=== PATIENT | female | born 1965 | race Caucasian/White ===

== ENCOUNTER 2017-07-29 03:49 | Inpatient (IN) | payer OTHER ==
[2017-07-29] MEDS: morphine 4 MG/ML VIAL IV (04:29)
[2017-07-29] MEDS: ONDANSETRON 4 MG INJ IV ×5 (04:29→21:19)
[2017-07-29 04:30] LABS: URINE BLOOD (Dip) POC 1+ (NEGATIVE); URINE GLUCOSE (Dip) POC Negative (NEGATIVE); URINE KETONES (Dip) POC Negative (NEGATIVE); URINE LEUKOCYTE EST (Dip) POC Negative (NEGATIVE); URINE NITRITE (Dip) POC Negative (NEGATIVE); URINE TOTAL PROTEIN POC Negative (NEGATIVE)
[2017-07-29 04:30] LABS: URINE PH (Dip) POC 5.5 (5.0-8.5)
[2017-07-29] MEDS: SOD CHLORIDE 0.9% 1,000 ML IV (04:31)
[2017-07-29 04:45] LABS: ADD MAN DIFF? NO
[2017-07-29 04:49] LABS: WHITE BLOOD COUNT 7.9 10^3/ul (4.8-10.8)
[2017-07-29 04:49] LABS: BASOPHILS % 0.1 % (0.0-2.0); EOSINOPHILS # 0.4 10^3/ul (0.0-0.5); EOSINOPHILS % 5.5 % (0.0-7.0); HEMATOCRIT 37.4 % (37.0-47.0); HEMOGLOBIN 12.3 g/dl (12.0-16.0); LYMPHOCYTES # 0.9 10^3/ul (0.8-2.9); LYMPHOCYTES % 11.9 % (15.0-51.0); MEAN CORPUSCULAR HEMOGLOBIN 29.2 pg (29.0-33.0); MEAN CORPUSCULAR HGB CONC 32.9 g/dl (32.0-37.0); MEAN CORPUSCULAR VOLUME 88.8 fl (82.0-101.0); MEAN PLATELET VOLUME 10.1 fl (7.4-10.4); MONOCYTE # 0.3 10^3/ul (0.3-0.9); MONOCYTES % 4.2 % (0.0-11.0); NEUTROPHIL # 6.2 10^3/ul (1.6-7.5); PLATELET COUNT 243 10^3/UL (140-415); RED BLOOD COUNT 4.21 10^6/ul (4.20-5.40); RED CELL DISTRIBUTION WIDTH 14.4 % (11.5-14.5)
[2017-07-29] MEDS: SODIUM CHLORIDE 0.9% 1L BAG IV* (05:03)
[2017-07-29] MEDS: ACETAMINOPHEN 325 MG TAB PO ×2 (05:03→11:47)
[2017-07-29 05:09] LABS: ADD UMIC YES; UR ASCORBIC ACID NEGATIVE (NEGATIVE); UR BACTERIA FEW /HPF (NONE SEEN); UR BILIRUBIN (Dip) NEGATIVE (NEGATIVE); UR BLOOD (Dip) 1+ mg/dL (NEGATIVE); UR CLARITY SLIGHTLY CLOUDY (CLEAR); UR COLOR YELLOW (YELLOW); UR GLUCOSE (Dip) NEGATIVE (NEGATIVE); UR KETONES (Dip) NEGATIVE (NEGATIVE); UR LEUKOCYTE ESTERASE (Dip) NEGATIVE Leu/ul (NEGATIVE); UR MUCUS FEW /HPF (NONE SEEN); UR NITRITE (Dip) NEGATIVE (NEGATIVE); UR RBC 0 /HPF (0-5); UR SPECIFIC GRAVITY (Dip) 1.019 (1.003-1.030); UR SQUAMOUS EPITHELIAL CELL FEW /HPF (FEW); UR TOTAL PROTEIN (Dip) NEGATIVE (NEGATIVE); UR UROBILINOGEN (Dip) NEGATIVE (NEGATIVE); UR WBC 3 /HPF (0-5)
[2017-07-29 05:15] LABS: ALANINE AMINOTRANSFERASE 213 IU/L (13-69); ALBUMIN 3.7 g/dl (3.3-4.9); ALKALINE PHOSPHATASE 286 IU/L (42-121); ANION GAP 14 (8-16); ASPARTATE AMINO TRANSFERASE 134 IU/L (15-46); BILIRUBIN,INDIRECT 0.3 mg/dl (0-1.1); BILIRUBIN,TOTAL 0.3 mg/dl (0.2-1.3); BLOOD UREA NITROGEN 19 mg/dl (7-20); CALCIUM 8.9 mg/dl (8.4-10.2); CARBON DIOXIDE 23 mmol/L (21-31); CHLORIDE 108 mmol/L (97-110); GLUCOSE 124 mg/dl (70-220); LIPASE 399 U/L (23-300); SODIUM 141 mmol/L (135-144); TOTAL PROTEIN 7.8 g/dl (6.1-8.1)
[2017-07-29] MEDS: AZTREONAM 1 GM/NS (PMX) 50 ML IVPB ×2 (06:50→22:12)
[2017-07-29 06:58] LABS: LACTIC ACID 1.2 mmol/L (0.5-2.0)
[2017-07-29] MEDS: HYDROmorphONE 1 MG/ML SYG IV ×3 (07:03→22:12)
[2017-07-29] MEDS: VANCOMYCIN 1 GM (PMX) 250 ML IVPB (07:04)
[2017-07-29 11:36] LABS: LACTIC ACID 1.1 mmol/L (0.5-2.0)
[2017-07-29] MEDS: D5W-0.45 NACL + KCL 20 MEQ 1,000 ML IV ×2 (12:06→22:12)
[2017-07-29] MEDS ORDERED: FLUTICASONE 0.05% 16 GM NAS SPRAY NASAL (14:00)
[2017-07-29] MEDS: morphine 2 MG INJ IV (14:47)
[2017-07-29] MEDS: ACETAMINOPHEN 1000MG/100ML IV 100 ML IVPB (21:13)
[2017-07-29] MEDS: DIPHENHYDRAMINE 50 MG INJ IV (23:25)
[2017-07-30] MEDS: HYDROmorphONE 1 MG/ML SYG IV ×6 (02:44→22:09)
[2017-07-30] MEDS: ONDANSETRON 4 MG INJ IV ×4 (02:44→22:09)
[2017-07-30] MEDS: PANTOPRAZOLE 40 MG INJ IV (05:54)
[2017-07-30] MEDS: DIPHENHYDRAMINE 50 MG INJ IV ×3 (06:16→20:07)
[2017-07-30 07:35] LABS: ADD MAN DIFF? NO
[2017-07-30 07:44] LABS: WHITE BLOOD COUNT 3.4 10^3/ul (4.8-10.8)
[2017-07-30 07:44] LABS: ABNORMAL IP MESSAGE 1; EOSINOPHILS # 0.3 10^3/ul (0.0-0.5); EOSINOPHILS % 7.7 % (0.0-7.0); HEMATOCRIT 30.9 % (37.0-47.0); HEMOGLOBIN 9.9 g/dl (12.0-16.0); LYMPHOCYTES # 2.1 10^3/ul (0.8-2.9); LYMPHOCYTES % 61.3 % (15.0-51.0); MEAN CORPUSCULAR HEMOGLOBIN 29.2 pg (29.0-33.0); MEAN CORPUSCULAR VOLUME 91.2 fl (82.0-101.0); MEAN PLATELET VOLUME 10.3 fl (7.4-10.4); MONOCYTE # 0.4 10^3/ul (0.3-0.9); MONOCYTES % 13.1 % (0.0-11.0); NEUTROPHIL # 0.6 10^3/ul (1.6-7.5); NEUTROPHILS % 17.9 % (39.0-77.0); PLATELET COUNT 182 10^3/UL (140-415); RED BLOOD COUNT 3.39 10^6/ul (4.20-5.40); RED CELL DISTRIBUTION WIDTH 14.6 % (11.5-14.5)
[2017-07-30 07:48] LABS: POSITIVE DIFF @See below
[2017-07-30 08:08] LABS: ALANINE AMINOTRANSFERASE 365 IU/L (13-69); ALBUMIN 2.8 g/dl (3.3-4.9); ALBUMIN/GLOBULIN RATIO 0.73; ALKALINE PHOSPHATASE 285 IU/L (42-121); ANION GAP 10 (8-16); ASPARTATE AMINO TRANSFERASE 278 IU/L (15-46); BILIRUBIN,INDIRECT 0.6 mg/dl (0-1.1); BILIRUBIN,TOTAL 1.2 mg/dl (0.2-1.3); BLOOD UREA NITROGEN 8 mg/dl (7-20); CALCIUM 8.7 mg/dl (8.4-10.2); CARBON DIOXIDE 25 mmol/L (21-31); CHLORIDE 110 mmol/L (97-110); CREATININE 0.72 mg/dl (0.44-1.00); GLUCOSE 92 mg/dl (70-220); MAGNESIUM 1.7 mg/dl (1.7-2.5); POTASSIUM 4.1 mmol/L (3.5-5.1); SODIUM 141 mmol/L (135-144); TOTAL PROTEIN 6.6 g/dl (6.1-8.1)
[2017-07-30 08:17] LABS: AMYLASE 503 U/L (11-123)
[2017-07-30 08:28] LABS: LIPASE 2340 U/L (23-300)
[2017-07-30] MEDS: D5W-0.45 NACL + KCL 20 MEQ 1,000 ML IV ×3 (09:32→19:51)
[2017-07-30] MEDS: AZTREONAM 1 GM/NS (PMX) 50 ML IVPB ×2 (09:33→21:56)
[2017-07-30] MEDS: INFLUENZA VIRUS VACCINE 0.5 ML SYG IM* (15:02)
[2017-07-30] MEDS: ACETAMINOPHEN 1000MG/100ML IV 100 ML IVPB (21:56)
[2017-07-31] MEDS: HYDROmorphONE 1 MG/ML SYG IV ×6 (01:05→20:23)
[2017-07-31] MEDS: DIPHENHYDRAMINE 50 MG INJ IV ×3 (03:08→17:17)
[2017-07-31] MEDS: ONDANSETRON 4 MG INJ IV ×2 (04:09→10:11)
[2017-07-31] MEDS: PANTOPRAZOLE 40 MG INJ IV (05:30)
[2017-07-31] MEDS: ACETAMINOPHEN 1000MG/100ML IV 100 ML IVPB ×2 (05:32→10:44)
[2017-07-31 05:55] LABS: ADD MAN DIFF? NO
[2017-07-31 05:59] LABS: WHITE BLOOD COUNT 3.8 10^3/ul (4.8-10.8)
[2017-07-31 05:59] LABS: ABNORMAL IP MESSAGE 1; BASOPHILS % 0.5 % (0.0-2.0); EOSINOPHILS # 0.3 10^3/ul (0.0-0.5); EOSINOPHILS % 8.7 % (0.0-7.0); HEMATOCRIT 30.9 % (37.0-47.0); HEMOGLOBIN 9.9 g/dl (12.0-16.0); LYMPHOCYTES # 2.3 10^3/ul (0.8-2.9); LYMPHOCYTES % 61.6 % (15.0-51.0); MEAN CORPUSCULAR HEMOGLOBIN 28.9 pg (29.0-33.0); MEAN CORPUSCULAR VOLUME 90.4 fl (82.0-101.0); MEAN PLATELET VOLUME 9.6 fl (7.4-10.4); MONOCYTE # 0.5 10^3/ul (0.3-0.9); MONOCYTES % 14.3 % (0.0-11.0); NEUTROPHIL # 0.6 10^3/ul (1.6-7.5); NEUTROPHILS % 14.9 % (39.0-77.0); PLATELET COUNT 195 10^3/UL (140-415); RED BLOOD COUNT 3.42 10^6/ul (4.20-5.40); RED CELL DISTRIBUTION WIDTH 14.2 % (11.5-14.5)
[2017-07-31 06:17] LABS: POSITIVE DIFF @See below
[2017-07-31 06:52] LABS: ANION GAP 9 (8-16); BLOOD UREA NITROGEN 5 mg/dl (7-20); CALCIUM 9.1 mg/dl (8.4-10.2); CARBON DIOXIDE 28 mmol/L (21-31); CHLORIDE 108 mmol/L (97-110); CREATININE 0.69 mg/dl (0.44-1.00); GLUCOSE 98 mg/dl (70-220); LIPASE 306 U/L (23-300); POTASSIUM 4.4 mmol/L (3.5-5.1); SODIUM 141 mmol/L (135-144)
[2017-07-31] MEDS: D5W-0.45 NACL + KCL 20 MEQ 1,000 ML IV ×2 (07:22→13:39)
[2017-07-31] MEDS: AZTREONAM 1 GM/NS (PMX) 50 ML IVPB ×2 (09:32→20:23)
[2017-07-31] MEDS: DOCOSANOL 2 GM CREAM TOP ×3 (15:00→21:00)
[2017-07-31] MEDS ORDERED: ROCURONIUM 50 MG INJ (15:24)
[2017-07-31] MEDS ORDERED: MIDAZOLAM 1 MG/ML 2 ML INJ (15:24)
[2017-07-31] MEDS ORDERED: LIDOCAINE 2% (SDV) 5 ML INJ (15:24)
[2017-07-31] MEDS ORDERED: FENTAnyl 50 MCG/ML VIAL (15:24)
[2017-07-31] MEDS ORDERED: PROPOFOL 20 ML (15:24)
[2017-07-31] MEDS: IOHEXOL 300MG/ML 30 ML BTL (15:59)
[2017-07-31] MEDS ORDERED: ONDANSETRON 4 MG INJ (16:07)
[2017-07-31] MEDS ORDERED: DEXAMETHASONE 4 MG/ML 1 ML INJ (16:08)
[2017-07-31] MEDS ORDERED: SUGAMMADEX SODIUM 200 MG/2 ML VIAL IV (16:29)
[2017-07-31] MEDS: INDOMETHACIN 50 MG SUPP PR (16:37)
[2017-07-31] MEDS ORDERED: HYDROmorphONE (0.2 MG/ML) 10ML SYG IV ×3 (16:53→17:00)
[2017-07-31] MEDS ORDERED: METOCLOPRAMIDE 10 MG INJ IV (17:00)
[2017-07-31] MEDS ORDERED: DIPHENHYDRAMINE 50 MG INJ IV (17:00)
[2017-07-31] MEDS ORDERED: HALOPERIDOL 5 MG INJ IV (17:00)
[2017-07-31] MEDS ORDERED: LORAZEPAM 2 MG INJ IV (17:00)
[2017-07-31] MEDS ORDERED: ONDANSETRON 4 MG INJ IV (17:00)
[2017-07-31] MEDS ORDERED: MIDAZOLAM 1 MG/ML 2 ML INJ IV (17:00)
[2017-07-31] MEDS: HYDROmorphONE (0.2 MG/ML) 10ML SYG IV (17:16)
[2017-07-31] MEDS: ACYCLOVIR 400 MG TAB PO (20:23)
[2017-07-31] MEDS: LORAZEPAM 2 MG INJ IV (20:24)
[2017-08-01] MEDS: D5W-0.45 NACL + KCL 20 MEQ 1,000 ML IV ×3 (00:53→18:15)
[2017-08-01] MEDS: ONDANSETRON 4 MG INJ IV ×4 (01:08→20:47)
[2017-08-01] MEDS: DIPHENHYDRAMINE 50 MG INJ IV ×3 (01:08→20:47)
[2017-08-01] MEDS: HYDROmorphONE 1 MG/ML SYG IV ×5 (01:09→20:54)
[2017-08-01] MEDS: ACETAMINOPHEN 1000MG/100ML IV 100 ML IVPB ×2 (02:55→16:16)
[2017-08-01] MEDS: PANTOPRAZOLE 40 MG INJ IV (05:47)
[2017-08-01 06:04] LABS: ADD MAN DIFF? NO
[2017-08-01 06:08] LABS: BASOPHILS % 0.2 % (0.0-2.0); HEMATOCRIT 31.7 % (37.0-47.0); HEMOGLOBIN 10.9 g/dl (12.0-16.0); LYMPHOCYTES # 1.9 10^3/ul (0.8-2.9); LYMPHOCYTES % 36.3 % (15.0-51.0); MEAN CORPUSCULAR HEMOGLOBIN 29.9 pg (29.0-33.0); MEAN CORPUSCULAR HGB CONC 34.4 g/dl (32.0-37.0); MEAN CORPUSCULAR VOLUME 87.1 fl (82.0-101.0); MEAN PLATELET VOLUME 9.9 fl (7.4-10.4); MONOCYTE # 0.5 10^3/ul (0.3-0.9); MONOCYTES % 10.4 % (0.0-11.0); NEUTROPHIL # 2.7 10^3/ul (1.6-7.5); NEUTROPHILS % 52.9 % (39.0-77.0); PLATELET COUNT 234 10^3/UL (140-415); RED BLOOD COUNT 3.64 10^6/ul (4.20-5.40); RED CELL DISTRIBUTION WIDTH 13.5 % (11.5-14.5)
[2017-08-01 06:08] LABS: WHITE BLOOD COUNT 5.1 10^3/ul (4.8-10.8)
[2017-08-01 07:02] LABS: ANION GAP 13 (8-16); BLOOD UREA NITROGEN 7 mg/dl (7-20); CARBON DIOXIDE 23 mmol/L (21-31); CHLORIDE 109 mmol/L (97-110); CREATININE 0.61 mg/dl (0.44-1.00); GLUCOSE 142 mg/dl (70-220); LIPASE 813 U/L (23-300); POTASSIUM 4.3 mmol/L (3.5-5.1); SODIUM 141 mmol/L (135-144)
[2017-08-01] MEDS: LORAZEPAM 2 MG INJ IV ×3 (07:57→18:07)
[2017-08-01] MEDS: DOCOSANOL 2 GM CREAM TOP ×5 (09:00→20:47)
[2017-08-01] MEDS: ACYCLOVIR 400 MG TAB PO ×3 (09:00→20:46)
[2017-08-01] MEDS: AZTREONAM 1 GM/NS (PMX) 50 ML IVPB ×2 (09:00→20:46)
[2017-08-02] MEDS: HYDROmorphONE 1 MG/ML SYG IV ×5 (00:17→22:58)
[2017-08-02] MEDS: LORAZEPAM 2 MG INJ IV ×4 (00:45→19:48)
[2017-08-02] MEDS: PANTOPRAZOLE 40 MG INJ IV (05:26)
[2017-08-02] MEDS: DIPHENHYDRAMINE 50 MG INJ IV ×2 (05:27→22:57)
[2017-08-02] MEDS: ONDANSETRON 4 MG INJ IV ×3 (05:27→20:50)
[2017-08-02 05:55] LABS: ADD MAN DIFF? NO
[2017-08-02] MEDS: D5W-0.45 NACL + KCL 20 MEQ 1,000 ML IV ×2 (05:58→19:48)
[2017-08-02 05:59] LABS: BASOPHILS % 0.3 % (0.0-2.0); EOSINOPHILS # 0.3 10^3/ul (0.0-0.5); EOSINOPHILS % 3.8 % (0.0-7.0); HEMATOCRIT 31.2 % (37.0-47.0); HEMOGLOBIN 10.2 g/dl (12.0-16.0); LYMPHOCYTES # 3.7 10^3/ul (0.8-2.9); LYMPHOCYTES % 53.6 % (15.0-51.0); MEAN CORPUSCULAR HEMOGLOBIN 30.1 pg (29.0-33.0); MEAN CORPUSCULAR HGB CONC 32.7 g/dl (32.0-37.0); MEAN PLATELET VOLUME 9.6 fl (7.4-10.4); MONOCYTE # 0.6 10^3/ul (0.3-0.9); MONOCYTES % 8.6 % (0.0-11.0); NEUTROPHIL # 2.3 10^3/ul (1.6-7.5); NEUTROPHILS % 33.4 % (39.0-77.0); PLATELET COUNT 228 10^3/UL (140-415); RED BLOOD COUNT 3.39 10^6/ul (4.20-5.40); RED CELL DISTRIBUTION WIDTH 14.3 % (11.5-14.5)
[2017-08-02 05:59] LABS: WHITE BLOOD COUNT 6.9 10^3/ul (4.8-10.8)
[2017-08-02 06:53] LABS: LIPASE 388 U/L (23-300)
[2017-08-02 07:02] LABS: ANION GAP 13 (8-16); BLOOD UREA NITROGEN 10 mg/dl (7-20); CALCIUM 8.2 mg/dl (8.4-10.2); CARBON DIOXIDE 25 mmol/L (21-31); CHLORIDE 109 mmol/L (97-110); CREATININE 0.73 mg/dl (0.44-1.00); GLUCOSE 107 mg/dl (70-220); POTASSIUM 3.8 mmol/L (3.5-5.1); SODIUM 143 mmol/L (135-144)
[2017-08-02] MEDS: ACYCLOVIR 400 MG TAB PO ×3 (08:23→20:49)
[2017-08-02] MEDS: AZTREONAM 1 GM/NS (PMX) 50 ML IVPB ×2 (08:24→20:49)
[2017-08-02] MEDS: DOCOSANOL 2 GM CREAM TOP ×5 (09:00→20:49)
[2017-08-02] MEDS: ACETAMINOPHEN 1000MG/100ML IV 100 ML IVPB (14:59)
[2017-08-03] MEDS: HYDROmorphONE 1 MG/ML SYG IV ×5 (03:21→20:43)
[2017-08-03] MEDS: ONDANSETRON 4 MG INJ IV ×3 (03:21→21:43)
[2017-08-03] MEDS: PANTOPRAZOLE 40 MG INJ IV (05:20)
[2017-08-03] MEDS: LORAZEPAM 2 MG INJ IV ×2 (05:20→17:38)
[2017-08-03 07:12] LABS: LIPASE 140 U/L (23-300)
[2017-08-03] MEDS: D5W-0.45 NACL + KCL 20 MEQ 1,000 ML IV ×3 (07:27→21:42)
[2017-08-03] MEDS: AZTREONAM 1 GM/NS (PMX) 50 ML IVPB ×2 (08:04→20:48)
[2017-08-03] MEDS: ACYCLOVIR 400 MG TAB PO ×3 (08:05→20:42)
[2017-08-03] MEDS: DOCOSANOL 2 GM CREAM TOP ×5 (08:05→20:44)
[2017-08-03] MEDS: DIPHENHYDRAMINE 50 MG INJ IV (08:07)
[2017-08-03] MEDS: ACETAMINOPHEN 1000MG/100ML IV 100 ML IVPB (13:00)
[2017-08-03] MEDS: METOCLOPRAMIDE 10 MG INJ IV (13:20)
[2017-08-04] MEDS: LORAZEPAM 2 MG INJ IV ×4 (00:48→15:23)
[2017-08-04] MEDS: DIPHENHYDRAMINE 50 MG INJ IV ×2 (02:19→10:42)
[2017-08-04] MEDS: D5W-0.45 NACL + KCL 20 MEQ 1,000 ML IV ×2 (02:31→13:17)
[2017-08-04] MEDS: ONDANSETRON 4 MG INJ IV ×3 (04:05→17:19)
[2017-08-04] MEDS: HYDROmorphONE 1 MG/ML SYG IV ×5 (04:06→23:01)
[2017-08-04] MEDS: PANTOPRAZOLE 40 MG INJ IV (05:22)
[2017-08-04] MEDS: AZTREONAM 1 GM/NS (PMX) 50 ML IVPB ×2 (08:39→21:08)
[2017-08-04] MEDS: ACYCLOVIR 400 MG TAB PO ×3 (08:39→21:08)
[2017-08-04] MEDS: DOCOSANOL 2 GM CREAM TOP ×4 (08:39→17:08)
[2017-08-04] MEDS: METOCLOPRAMIDE 10 MG INJ IV (19:47)
[2017-08-05] MEDS: ONDANSETRON 4 MG INJ IV ×2 (01:05→09:55)
[2017-08-05] MEDS: DIPHENHYDRAMINE 50 MG INJ IV ×2 (01:05→09:55)
[2017-08-05] MEDS: D5W-0.45 NACL + KCL 20 MEQ 1,000 ML IV ×2 (04:58→08:03)
[2017-08-05] MEDS: PANTOPRAZOLE 40 MG INJ IV (05:02)
[2017-08-05] MEDS: HYDROmorphONE 1 MG/ML SYG IV (05:02)
[2017-08-05] MEDS: LORAZEPAM 2 MG INJ IV (06:23)
[2017-08-05] MEDS: AZTREONAM 1 GM/NS (PMX) 50 ML IVPB (08:12)
[2017-08-05] MEDS: DOCOSANOL 2 GM CREAM TOP ×2 (08:13→12:08)
[2017-08-05] MEDS: ACYCLOVIR 400 MG TAB PO (08:13)
== END 2017-08-05 12:20 | disposition home or self-care (01) | DRG 871 ==
LOC: MS2 08-01 14:01 → E/R 03:49 → MS2 07:04
PROC: 0FC98ZZ Extirpation of Matter from Common Bile Duct, Via Natural or Artificial Opening Endoscopic (ICD-10-PCS; principal; 2017-07-31 15:00)
PROC: 0F798DZ Dilation of Common Bile Duct with Intraluminal Device, Via Natural or Artificial Opening Endoscopic (ICD-10-PCS; 2017-07-31 15:00)
DX: A41.9 Sepsis, unspecified organism (principal); K85.90 Acute pancreatitis without necrosis or infection, unspecified; K80.50 Calculus of bile duct without cholangitis or cholecystitis without obstruction; M35.00 Sjogren syndrome, unspecified; M06.9 Rheumatoid arthritis, unspecified; F41.9 Anxiety disorder, unspecified
CPT/HCPCS: 36415; 74176; 74330; 76705; 80048; 80053; 80076; 81001; 81003; 82150; 83605; 83690; 83735; 84703; 85025; 87040; 87086; 90686; 96374; 96375; 96376; 99291-25

== ENCOUNTER 2017-12-05 10:53 | Emergency (ER) | payer OTHER ==
[2017-12-05] MEDS: morphine 4 MG/ML VIAL IV (13:07)
[2017-12-05] MEDS: ONDANSETRON 4 MG INJ IV (13:08)
[2017-12-05] MEDS: DEXAMETHASONE 10 MG/ML 1 ML INJ IV (13:08)
[2017-12-05] MEDS: SOD CHLORIDE 0.9% 1,000 ML IV (13:08)
[2017-12-05 13:10] LABS: ADD MAN DIFF? NO
[2017-12-05 13:15] LABS: WHITE BLOOD COUNT 7.1 10^3/ul (4.8-10.8)
[2017-12-05 13:15] LABS: BASOPHILS % 0.6 % (0.0-2.0); EOSINOPHILS # 0.7 10^3/ul (0.0-0.5); EOSINOPHILS % 9.7 % (0.0-7.0); HEMOGLOBIN 11.8 g/dl (12.0-16.0); LYMPHOCYTES # 2.8 10^3/ul (0.8-2.9); LYMPHOCYTES % 39.9 % (15.0-51.0); MEAN CORPUSCULAR HEMOGLOBIN 28.4 pg (29.0-33.0); MEAN CORPUSCULAR HGB CONC 31.9 g/dl (32.0-37.0); MEAN CORPUSCULAR VOLUME 89.2 fl (82.0-101.0); MEAN PLATELET VOLUME 9.5 fl (7.4-10.4); MONOCYTE # 0.5 10^3/ul (0.3-0.9); MONOCYTES % 7.6 % (0.0-11.0); NEUTROPHILS % 42.1 % (39.0-77.0); PLATELET COUNT 291 10^3/UL (140-415); RED BLOOD COUNT 4.15 10^6/ul (4.20-5.40); RED CELL DISTRIBUTION WIDTH 12.6 % (11.5-14.5)
[2017-12-05 13:30] LABS: ADD UMIC NO; UR ASCORBIC ACID NEGATIVE (NEGATIVE); UR BILIRUBIN (Dip) NEGATIVE (NEGATIVE); UR BLOOD (Dip) NEGATIVE (NEGATIVE); UR CLARITY SLIGHTLY CLOUDY (CLEAR); UR COLOR YELLOW (YELLOW); UR GLUCOSE (Dip) NEGATIVE (NEGATIVE); UR KETONES (Dip) NEGATIVE (NEGATIVE); UR LEUKOCYTE ESTERASE (Dip) NEGATIVE Leu/ul (NEGATIVE); UR NITRITE (Dip) NEGATIVE (NEGATIVE); UR RBC 1 /HPF (0-5); UR SPECIFIC GRAVITY (Dip) 1.018 (1.003-1.030); UR SQUAMOUS EPITHELIAL CELL FEW /HPF (FEW); UR TOTAL PROTEIN (Dip) NEGATIVE (NEGATIVE); UR UROBILINOGEN (Dip) NEGATIVE (NEGATIVE); UR WBC 1 /HPF (0-5)
[2017-12-05 13:34] LABS: ALANINE AMINOTRANSFERASE 50 IU/L (13-69); ALBUMIN 4.2 g/dl (3.3-4.9); ALBUMIN/GLOBULIN RATIO 0.87; ALKALINE PHOSPHATASE 206 IU/L (42-121); ANION GAP 17 (8-16); ASPARTATE AMINO TRANSFERASE 55 IU/L (15-46); BILIRUBIN,INDIRECT 0.2 mg/dl (0-1.1); BILIRUBIN,TOTAL 0.2 mg/dl (0.2-1.3); BLOOD UREA NITROGEN 16 mg/dl (7-20); CALCIUM 9.2 mg/dl (8.4-10.2); CARBON DIOXIDE 26 mmol/L (21-31); CHLORIDE 105 mmol/L (97-110); CREATININE 0.67 mg/dl (0.44-1.00); GLUCOSE 97 mg/dl (70-220); LIPASE 115 U/L (23-300); POTASSIUM 3.8 mmol/L (3.5-5.1); SODIUM 144 mmol/L (135-144)
[2017-12-05] MEDS: KETOROLAC 30 MG INJ IV (15:07)
== END 2017-12-05 16:07 | disposition home or self-care (01) ==
LOC: FTE 10:53
DX: M06.9 Rheumatoid arthritis, unspecified (principal); J45.909 Unspecified asthma, uncomplicated; Z91.040 Latex allergy status
CPT/HCPCS: 36415; 76705; 80053; 81001; 81003; 81025; 83690; 84703; 85025; 96374; 96375; 99285-25

== ENCOUNTER 2018-02-05 16:34 | Emergency (ER) | payer OTHER ==
[2018-02-05] MEDS: KETOROLAC 30 MG INJ IV (18:37)
[2018-02-05] MEDS: DIPHENHYDRAMINE 50 MG INJ IV (18:37)
[2018-02-05] MEDS: METOCLOPRAMIDE 10 MG INJ IV (18:37)
[2018-02-05] MEDS: SOD CHLORIDE 0.9% 1,000 ML IV (18:38)
[2018-02-05 19:02] LABS: ADD MAN DIFF? NO
[2018-02-05 19:03] LABS: WHITE BLOOD COUNT 6.5 10^3/ul (4.8-10.8)
[2018-02-05 19:03] LABS: BASOPHILS % 0.6 % (0.0-2.0); EOSINOPHILS # 0.3 10^3/ul (0.0-0.5); EOSINOPHILS % 4.9 % (0.0-7.0); HEMATOCRIT 37.5 % (37.0-47.0); HEMOGLOBIN 11.6 g/dl (12.0-16.0); LYMPHOCYTES # 3.2 10^3/ul (0.8-2.9); LYMPHOCYTES % 48.8 % (15.0-51.0); MEAN CORPUSCULAR HEMOGLOBIN 28.4 pg (29.0-33.0); MEAN CORPUSCULAR HGB CONC 30.9 g/dl (32.0-37.0); MEAN CORPUSCULAR VOLUME 91.7 fl (82.0-101.0); MEAN PLATELET VOLUME 9.7 fl (7.4-10.4); MONOCYTE # 0.7 10^3/ul (0.3-0.9); MONOCYTES % 10.3 % (0.0-11.0); NEUTROPHIL # 2.3 10^3/ul (1.6-7.5); NEUTROPHILS % 35.2 % (39.0-77.0); PLATELET COUNT 303 10^3/UL (140-415); RED BLOOD COUNT 4.09 10^6/ul (4.20-5.40); RED CELL DISTRIBUTION WIDTH 13.6 % (11.5-14.5)
[2018-02-05 19:20] LABS: ANION GAP 15 (8-16); BLOOD UREA NITROGEN 18 mg/dl (7-20); CARBON DIOXIDE 33 mmol/L (21-31); CHLORIDE 100 mmol/L (97-110); CREATININE 0.61 mg/dl (0.44-1.00); GLUCOSE 85 mg/dl (70-220); POTASSIUM 4.7 mmol/L (3.5-5.1); SODIUM 143 mmol/L (135-144)
[2018-02-05 19:38] LABS: TROPONIN-I < 0.012 ng/ml (0.000-0.120)
== END 2018-02-05 20:05 | disposition home or self-care (01) ==
LOC: FTE 16:34
DX: R51 Headache (principal); R11.0 Nausea; K13.79 Other lesions of oral mucosa; R53.1 Weakness; R53.83 Other fatigue; J45.909 Unspecified asthma, uncomplicated; Z91.040 Latex allergy status
CPT/HCPCS: 36415; 71045; 80048; 81025; 84484; 85025; 93005; 96374; 96375; 99285-25

== ENCOUNTER 2018-03-01 18:50 | Emergency (ER) | payer OTHER | END 2018-03-01 22:46 | disposition home or self-care (01) | LOC: FTE 18:50 | DX: M06.9 Rheumatoid arthritis, unspecified (principal); J45.909 Unspecified asthma, uncomplicated; Z91.040 Latex allergy status | CPT/HCPCS: 73080; 73080-RT; 99283-25 ==

== ENCOUNTER 2018-03-26 22:22 | Emergency (ER) | payer OTHER ==
[2018-03-27] MEDS: DIPHENHYDRAMINE 50 MG INJ IM (00:09)
[2018-03-27] MEDS: KETOROLAC 60 MG INJ IM (00:09)
== END 2018-03-27 00:37 | disposition home or self-care (01) ==
LOC: FTE 22:22
DX: M06.9 Rheumatoid arthritis, unspecified (principal); J45.909 Unspecified asthma, uncomplicated; Z91.040 Latex allergy status
CPT/HCPCS: 96372; 99284-25

== ENCOUNTER 2018-03-27 10:42 | Emergency (ER) | payer OTHER ==
[2018-03-27] MEDS: ONDANSETRON (ODT) 4 MG TAB ODT (10:58)
[2018-03-27] MEDS: IBUPROFEN 800 MG TAB PO (10:58)
== END 2018-03-27 12:04 | disposition home or self-care (01) ==
LOC: FTE 10:42
DX: O99.89 Other specified diseases and conditions complicating pregnancy, childbirth and the puerperium (principal); R22.42 Localized swelling, mass and lump, left lower limb; Z3A.35 35 weeks gestation of pregnancy
CPT/HCPCS: 73562; 73610-RT; 99282

== ENCOUNTER 2018-03-30 08:42 | Emergency (ER) | payer OTHER ==
[2018-03-30] MEDS: KETOROLAC 15 MG INJ IM (09:20)
[2018-03-30] MEDS: ACETAMINOPHEN 500 MG TAB PO (10:28)
== END 2018-03-30 10:47 | disposition home or self-care (01) ==
LOC: FTE 08:42
DX: S42.401A Unspecified fracture of lower end of right humerus, initial encounter for closed fracture (principal); S99.911A Unspecified injury of right ankle, initial encounter; S99.912A Unspecified injury of left ankle, initial encounter; J45.909 Unspecified asthma, uncomplicated; W01.0XXA Fall on same level from slipping, tripping and stumbling without subsequent striking against object, initial encounter; Y92.9 Unspecified place or not applicable; Z91.040 Latex allergy status
CPT/HCPCS: 29105; 73080-RT; 73090-RT; 73110-RT; 96372; 99284-25

== ENCOUNTER 2018-04-05 17:50 | Emergency (ER) | payer OTHER ==
[2018-04-05] MEDS: KETOROLAC 30 MG INJ IM (19:47)
== END 2018-04-05 19:54 | disposition home or self-care (01) ==
LOC: FTE 17:50
DX: S49.91XD Unspecified injury of right shoulder and upper arm, subsequent encounter (principal); J45.909 Unspecified asthma, uncomplicated; W19.XXXD Unspecified fall, subsequent encounter; Y92.9 Unspecified place or not applicable; Z91.040 Latex allergy status
CPT/HCPCS: 29105; 96372; 99284-25

== ENCOUNTER 2018-04-28 09:35 | Emergency (ER) | payer OTHER ==
[2018-04-28] MEDS: DIPHENHYDRAMINE 50 MG CAP PO (10:19)
== END 2018-04-28 10:51 | disposition home or self-care (01) ==
LOC: FTE 09:35
DX: H02.841 Edema of right upper eyelid (principal); J45.909 Unspecified asthma, uncomplicated; Z91.040 Latex allergy status
CPT/HCPCS: 99282; Z7502

== ENCOUNTER 2018-05-09 10:06 | Emergency (ER) | payer OTHER ==
[2018-05-09] MEDS: DEXAMETHASONE 10 MG/ML 1 ML INJ IM (10:39)
[2018-05-09] MEDS: DIPHENHYDRAMINE 50 MG CAP PO (10:39)
[2018-05-09] MEDS: DIPHENHYDRAMINE 50 MG INJ IV ×2 (11:14→12:19)
[2018-05-09] MEDS: SOD CHLORIDE 0.9% 1,000 ML IV (11:14)
[2018-05-09 11:28] LABS: ADD MAN DIFF? NO
[2018-05-09 11:31] LABS: WHITE BLOOD COUNT 6.2 10^3/ul (4.8-10.8)
[2018-05-09 11:31] LABS: BASOPHILS % 0.5 % (0.0-2.0); EOSINOPHILS # 0.3 10^3/ul (0.0-0.5); EOSINOPHILS % 5.2 % (0.0-7.0); HEMATOCRIT 36.3 % (37.0-47.0); HEMOGLOBIN 11.5 g/dl (12.0-16.0); LYMPHOCYTES # 2.8 10^3/ul (0.8-2.9); LYMPHOCYTES % 45.2 % (15.0-51.0); MEAN CORPUSCULAR HEMOGLOBIN 28.4 pg (29.0-33.0); MEAN CORPUSCULAR HGB CONC 31.7 g/dl (32.0-37.0); MEAN CORPUSCULAR VOLUME 89.6 fl (82.0-101.0); MEAN PLATELET VOLUME 10.1 fl (7.4-10.4); MONOCYTE # 0.6 10^3/ul (0.3-0.9); MONOCYTES % 9.7 % (0.0-11.0); NEUTROPHIL # 2.4 10^3/ul (1.6-7.5); NEUTROPHILS % 39.2 % (39.0-77.0); PLATELET COUNT 296 10^3/UL (140-415); RED BLOOD COUNT 4.05 10^6/ul (4.20-5.40); RED CELL DISTRIBUTION WIDTH 14.1 % (11.5-14.5)
[2018-05-09 11:33] LABS: ADD UMIC NO; UR ASCORBIC ACID NEGATIVE (NEGATIVE); UR BILIRUBIN (Dip) NEGATIVE (NEGATIVE); UR BLOOD (Dip) NEGATIVE (NEGATIVE); UR CLARITY CLEAR (CLEAR); UR COLOR YELLOW (YELLOW); UR GLUCOSE (Dip) NEGATIVE (NEGATIVE); UR KETONES (Dip) NEGATIVE (NEGATIVE); UR LEUKOCYTE ESTERASE (Dip) NEGATIVE Leu/ul (NEGATIVE); UR NITRITE (Dip) NEGATIVE (NEGATIVE); UR SPECIFIC GRAVITY (Dip) 1.014 (1.003-1.030); UR TOTAL PROTEIN (Dip) NEGATIVE (NEGATIVE); UR UROBILINOGEN (Dip) NEGATIVE (NEGATIVE)
[2018-05-09 11:55] LABS: ALANINE AMINOTRANSFERASE 32 IU/L (13-69); ALBUMIN/GLOBULIN RATIO 0.83; ALKALINE PHOSPHATASE 122 IU/L (42-121); ANION GAP 11 (8-16); ASPARTATE AMINO TRANSFERASE 32 IU/L (15-46); BILIRUBIN,INDIRECT 0.4 mg/dl (0-1.1); BILIRUBIN,TOTAL 0.4 mg/dl (0.2-1.3); BLOOD UREA NITROGEN 14 mg/dl (7-20); CALCIUM 9.1 mg/dl (8.4-10.2); CARBON DIOXIDE 26 mmol/L (21-31); CHLORIDE 108 mmol/L (97-110); CREATININE 0.66 mg/dl (0.44-1.00); GLUCOSE 104 mg/dl (70-220); POTASSIUM 4.6 mmol/L (3.5-5.1); SODIUM 140 mmol/L (135-144); TOTAL PROTEIN 6.6 g/dl (6.1-8.1)
== END 2018-05-09 12:29 | disposition home or self-care (01) ==
LOC: FTE 10:06
DX: R21 Rash and other nonspecific skin eruption (principal); J45.909 Unspecified asthma, uncomplicated; Z91.040 Latex allergy status
CPT/HCPCS: 36415; 80053; 81003; 85025; 96372; 96374; 96375; 99284-25

== ENCOUNTER 2018-05-19 21:46 | Emergency (ER) | payer OTHER ==
[2018-05-19] MEDS: LORAZEPAM 1 MG TAB PO (23:36)
== END 2018-05-20 00:06 | disposition home or self-care (01) ==
LOC: FTE 05-20 00:06
DX: F41.1 Generalized anxiety disorder (principal); J45.909 Unspecified asthma, uncomplicated; Z91.040 Latex allergy status
CPT/HCPCS: 93005; 99283-25

== ENCOUNTER 2018-06-04 10:37 | Emergency (ER) | payer OTHER ==
[2018-06-04] MEDS: ONDANSETRON (ODT) 4 MG TAB ODT (11:32)
[2018-06-04] MEDS: KETOROLAC 30 MG INJ IM (11:32)
[2018-06-04 11:39] LABS: ADD MAN DIFF? NO
[2018-06-04 11:40] LABS: WHITE BLOOD COUNT 5.5 10^3/ul (4.8-10.8)
[2018-06-04 11:40] LABS: BASOPHILS % 0.5 % (0.0-2.0); EOSINOPHILS # 0.3 10^3/ul (0.0-0.5); EOSINOPHILS % 4.9 % (0.0-7.0); HEMATOCRIT 37.7 % (37.0-47.0); HEMOGLOBIN 11.8 g/dl (12.0-16.0); LYMPHOCYTES # 2.6 10^3/ul (0.8-2.9); LYMPHOCYTES % 46.9 % (15.0-51.0); MEAN CORPUSCULAR HEMOGLOBIN 27.8 pg (29.0-33.0); MEAN CORPUSCULAR HGB CONC 31.3 g/dl (32.0-37.0); MEAN CORPUSCULAR VOLUME 88.7 fl (82.0-101.0); MEAN PLATELET VOLUME 10.3 fl (7.4-10.4); MONOCYTE # 0.6 10^3/ul (0.3-0.9); MONOCYTES % 11.3 % (0.0-11.0); NEUTROPHILS % 36.4 % (39.0-77.0); PLATELET COUNT 240 10^3/UL (140-415); RED BLOOD COUNT 4.25 10^6/ul (4.20-5.40); RED CELL DISTRIBUTION WIDTH 13.8 % (11.5-14.5)
[2018-06-04 11:51] LABS: ADD UMIC YES; UR ASCORBIC ACID NEGATIVE (NEGATIVE); UR BILIRUBIN (Dip) NEGATIVE (NEGATIVE); UR BLOOD (Dip) NEGATIVE (NEGATIVE); UR CLARITY CLOUDY (CLEAR); UR COLOR YELLOW (YELLOW); UR GLUCOSE (Dip) NEGATIVE (NEGATIVE); UR KETONES (Dip) NEGATIVE (NEGATIVE); UR LEUKOCYTE ESTERASE (Dip) NEGATIVE Leu/ul (NEGATIVE); UR MUCUS MODERATE /HPF (NONE SEEN); UR NITRITE (Dip) NEGATIVE (NEGATIVE); UR RBC 1 /HPF (0-5); UR SPECIFIC GRAVITY (Dip) 1.025 (1.003-1.030); UR SQUAMOUS EPITHELIAL CELL MANY /HPF (FEW); UR TOTAL PROTEIN (Dip) NEGATIVE (NEGATIVE); UR UROBILINOGEN (Dip) 1+ mg/dL (NEGATIVE); UR WBC 2 /HPF (0-5)
[2018-06-04 12:02] LABS: ALANINE AMINOTRANSFERASE 15 IU/L (13-69); ALBUMIN/GLOBULIN RATIO 0.85; ALKALINE PHOSPHATASE 115 IU/L (42-121); ANION GAP 7 (5-13); ASPARTATE AMINO TRANSFERASE 24 IU/L (15-46); BILIRUBIN,INDIRECT 0.1 mg/dl (0-1.1); BILIRUBIN,TOTAL 0.1 mg/dl (0.2-1.3); BLOOD UREA NITROGEN 12 mg/dl (7-20); CALCIUM 8.6 mg/dl (8.4-10.2); CARBON DIOXIDE 26 mmol/L (21-31); CHLORIDE 109 mmol/L (97-110); CREATININE 0.65 mg/dl (0.44-1.00); Estimated GFR > 60 mL/min (>60); GLUCOSE 100 mg/dl (70-220); LIPASE 73 U/L (23-300); POTASSIUM 4.1 mmol/L (3.5-5.1); SODIUM 142 mmol/L (135-144); TOTAL PROTEIN 6.5 g/dl (6.1-8.1)
== END 2018-06-04 12:23 | disposition home or self-care (01) ==
LOC: FTE 10:37
DX: K52.9 Noninfective gastroenteritis and colitis, unspecified (principal); J45.909 Unspecified asthma, uncomplicated; Z91.040 Latex allergy status
CPT/HCPCS: 80053; 81001; 83690; 85025; 96372; 99284-25